=== PATIENT | male | born 1955 | race Caucasian/White ===

== ENCOUNTER 2020-09-04 16:28 | Emergency (ER) | payer MEDICARE ==
[~2020-09-04] VITALS: Ht 175.3 cm; Wt 90.7 kg
[2020-09-04 17:15] LABS: ABSOLUTE BASOPHILS 0.1 thou/uL (0.0-0.2); ABSOLUTE EOSINOPHILS 0.1 thou/uL (0.0-0.7); ABSOLUTE LYMPHOCYTES 1.9 thou/uL (0.8-5.3); ABSOLUTE MONOCYTES 0.6 thou/uL (0.0-1.2); BASOPHILS 0.5 %; EOSINOPHILS 0.7 %; HEMATOCRIT 48.8 % (42.0-52.0); HEMOGLOBIN 16.6 gm/dL (14.0-18.0); LYMPHOCYTES 18.2 %; MCH 30.6 pg (26.0-34.0); MCV 89.9 fL (80.0-100.0); MONOCYTES 5.8 %; MPV 7.4 fl. (7.2-11.1); NUCLEATED RBCS 0 /100WBC; PLATELET COUNT* 393 thou/uL (150-400); POLYS 74.8 %; RBC 5.43 mil/uL (4.50-6.00); RDW-CV 12.7 % (10.5-14.5); WBC 10.7 thou/uL (4.0-11.0)
[2020-09-04 17:24] LABS: CALCIUM 8.9 mg/dL (8.5-10.1); CREATININE 0.8 mg/dL (0.6-1.3)
[2020-09-04 17:27] LABS: PROTIME 10.8 Seconds (9.20-11.50)
[2020-09-04 17:35] LABS: ALBUMIN 3.8 g/dL (3.4-5.0); TOTAL BILIRUBIN 0.6 mg/dL (<0.1-1.0); TOTAL PROTEIN 7.8 g/dL (6.4-8.2)
[2020-09-04] MEDS ORDERED: VENTOLIN HFA 1818 GM INH (17:58)
[2020-09-04] MEDS ORDERED: PREDNISONE 20 M20 M1 PO (17:58)
[2020-09-04] MEDS ORDERED: ZPAK PO (17:58)
[2020-09-04 18:14] VITALS: BP 139/82
--- NOTE | 2020-09-05 09:11 | EKG ---
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: : 1955 Requested By: Luis Pena Order Number: [id number] MD: Joe Flores Measurements Intervals Ona Rate: 95 P: 72 WI: 159 QRS: -53 QRSD: 124 T: 87 QT: 370 QTc: 465 Interpretive Statements Sinus rhythm nonspecific intraventricular conduction defect nonspecific t wave changes poor r wave progression left axis Baseline wander in lead(s) V1 No previous ECG available for comparison Electronically Signed On 09-05-2020 9:10:52 ENGINEERING ILLUSTRATOR by Joe Flores [email or web address] <ELECTRONICALLY SIGNED> By: Joe Flores MD, [facility] 09/05/20 0910 1635 1635 Joe Flores MD, [facility] /EPI
== END 2020-09-04 18:15 | disposition home or self-care (01) ==
LOC: M.ERS 16:28
PROVIDERS: Family Medicine
DX: R06.00 Dyspnea, unspecified (principal); Z20.828 Contact with and (suspected) exposure to other viral communicable diseases; R41.0 Disorientation, unspecified